=== PATIENT | male | born 1945 | race Caucasian/White ===

== ENCOUNTER → 2019-07-30 | Outpatient (CLI) | payer OTHER ==
[~2019-07-30] MED LIST: ALTACE10 MG PO; BYSTOLIC10 MG PO; CRESTOR40 MG PO; PRILOSEC OTC20 MG PO; PROBIOTIC1 EAC7 PO
== END ==
LOC: SJCVC 10:23
DX: I25.10 Atherosclerotic heart disease of native coronary artery without angina pectoris (principal); E78.00 Pure hypercholesterolemia, unspecified; I10 Essential (primary) hypertension; I73.9 Peripheral vascular disease, unspecified

== ENCOUNTER → 2019-08-07 | Outpatient (CLI) | payer OTHER | LOC: SJCVCIMAG 08:49 | DX: I34.0 Nonrheumatic mitral (valve) insufficiency (principal); I25.10 Atherosclerotic heart disease of native coronary artery without angina pectoris; E78.00 Pure hypercholesterolemia, unspecified; I10 Essential (primary) hypertension; Z95.5 Presence of coronary angioplasty implant and graft ==

== ENCOUNTER → 2019-08-26 | Outpatient (CLI) | payer OTHER ==
[~2019-08-26] VITALS: Ht 175.3 cm; Wt 74.8 kg
[2019-08-26 11:57] VITALS: BP 142/82
[2019-08-26 12:13] LABS: HEMATOCRIT 43.4 % (42.0-52.0); HEMOGLOBIN 14.2 gm/dL (14.0-18.0); MCH 31.5 pg (26.0-34.0); MCHC 32.6 g/dL (28.0-37.0); MCV 96.4 fL (80.0-100.0); RBC 4.5 mil/uL (4.50-6.00); RDW 13.2 % (10.5-14.5); WBC 5.3 thou/uL (4.0-11.0)
[2019-08-26 12:22] LABS: CALCIUM 9.5 mg/dL (8.5-10.1); CREATININE 1.2 mg/dL (0.7-1.3); POTASSIUM 4.5 mmol/L (3.5-5.1)
--- NOTE | 2019-08-26 18:38 | CATHLAB ---
[facility] [place] [address] INVASIVE PROCEDURE REPORT Name: MONICA BANG Room #: REG [facility] RaquelVazquez#: [id number] Admission: 08/26/19 Attend Phys: Beto Schaefer MD, Discharge: Date of : 47 Report #: [id number] THIS REPORT FOR: cc: FAM - Family physician unknown FAM - Family physician unknown Beto Schaefer MD [facility] ~ APPROVED REPORT Study performed: 08/26/2019 12:22:01 Patient Details Patient Status: Out-Patient Room #: The patient is a 73 year-old male Event Personnel Beto Schaefer Digital Media Manager, Anitha Crain RN RN, Indu Ambrosio RTR Monitor, Annette Blackwell Procedures Performed Art Access - R femoral artery* Left Heart Cath w/or w/o Coronaries [id number] [facility] Aortogram Abdominal Peripheral Angio 089349 [id number] Initial Mod Sed Same Phys/QHP Gr5y 125895 97914 Mod Sed Same Phys/QHP Ea 529629 Hemostasis w/ Mynx Procedure Narrative The patient was brought electively to the Cardiac Catheterization Laboratory and was prepped and draped in a sterile manner. The Right Groin^ was infiltrated with 1% Lidocaine subcutaneous anesthesia. A PINNACLE 6FR Sheath #[id number] sheath was inserted into the RFA^. Coronary angiography was performed using coronary diagnostic catheters. The right coronary system was accessed and visualized with a JR4 catheter. The left coronary system was accessed and visualized with a JL4 catheter. The left ventricle was accessed and visualized with a PIGTAIL catheter. Left ventriculogram was performed in 30 degree projection. An aortogram of the abdominal aorta was performed. Closure device was deployed with a Fr MYNXGRIP 6/7F #[id number]. The patient tolerated the procedure well and there were no complications associated with the procedure. There was no hematoma. Intraoperative Conscious Sedation Sedation start time: 12.53 Case end Time: 13.26 Fentanyl 50 mcg Versed 1 mg [facility] [place] [address] INVASIVE PROCEDURE REPORT Name: MONICA BANG Room #: [facility]#: [id number] Admission: 08/26/19 Attend Phys: Beto Schaefer, Discharge: Date of : 47 Report #: [id number] Fluoro Time: 2.50 minutes Dose: DAP 2045.60 cGycm2 250 mGy Contrast Type and Amount: Visipaque 105 ml Hemodynamics The aortic pressure is 143/84 mmHg with a mean of 37 mmHg. The left ventricular pressure is 138/5 mmHg with a mean of mmHg. The left ventricular end diastolic pressure is 18 mmHg. Conclusion #1 normal left ventricular size and systolic function EF 60% #2 abdominal aortograms intact with mild aortic ectasia no aneurysm is noted. #3 left main long free of disease giving rise to LAD and circumflex #4 LAD with mild irregularities in a moderate sized LAD with a previously placed stent the stent is widely patent diffuse distal disease mid vessel stenosis of 40% distal to the stent placement #5 a proximal arising diagonal branch previously stented is widely patent #6 small nondominant circumflex system no occlusive disease #7 dominant right coronary with small to moderate caliber widely patent Recommendations and plan: Continue aggressive risk factor modification. There does appear to breathe very small diagonal branch which is occluded which may be the cause of the small abnormality on the nuclear stress test. No myocardium appears to be at risk here. Continue aggressive risk factor modification. <ELECTRONICALLY SIGNED> By: Beto Schaefer MD, FACC 08/26/191836 36 36 Beto Schaefer MD, FACC /INF
--- NOTE | 2019-08-27 08:19 | EKG ---
[facility] [place] [address] ELECTROCARDIOGRAM REPORT Name: MONICA BANG Room #: REG 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
== END | disposition home or self-care (01) ==
LOC: CATH 08-23 11:09
PROVIDERS: Internal Medicine Cardiovascular Disease
DX: I25.10 Atherosclerotic heart disease of native coronary artery without angina pectoris (principal); R94.39 Abnormal result of other cardiovascular function study; I77.811 Abdominal aortic ectasia; I10 Essential (primary) hypertension; E78.5 Hyperlipidemia, unspecified; Z98.890 Other specified postprocedural states; Z79.899 Other long term (current) drug therapy

== ENCOUNTER → 2020-09-03 | Outpatient (CLI) | payer OTHER | LOC: SJCVC 11:39 | PROVIDERS: ATTEND Internal Medicine Cardiovascular Disease | DX: R94.31 Abnormal electrocardiogram [ECG] [EKG] (principal); I25.10 Atherosclerotic heart disease of native coronary artery without angina pectoris; I10 Essential (primary) hypertension; E78.00 Pure hypercholesterolemia, unspecified; I77.9 Disorder of arteries and arterioles, unspecified; F41.9 Anxiety disorder, unspecified; Z79.899 Other long term (current) drug therapy; Z88.1 Allergy status to other antibiotic agents; Z88.8 Allergy status to other drugs, medicaments and biological substances ==